=== PATIENT | female | born 1940 | race Caucasian/White ===

== ENCOUNTER 2019-03-04 14:22 | Emergency (ER) | payer MEDICARE, SELFPAY ==
[2019-03-04 14:22] VITALS: BP 145/63; PULSE 116; RESP 24; TEMP 36.7; O2SAT 98
[2019-03-04 14:23] VITALS: BP 145/63; PULSE 116; RESP 24; TEMP 36.7; O2SAT 98; BMI 19.2
--- NOTE | 2019-03-04 14:36 | RAD_ITS ---
STUDY: X-RAY CHEST REASON FOR EXAM: Female, 78 years old. Cough x 1 wk TECHNIQUE: PA and lateral views of the chest. COMPARISON: None. FINDINGS: Hyperinflation. Decreased bronchovascular markings bilaterally suggestive of emphysematous changes. There is no demonstrated pleural abnormality. Normal size heart. Calcified bilateral hilar lymph nodes. Normal visualized pulmonary arteries. Normal visualized aortic arch and descending thoracic aorta. There is demineralization of the osseous structures. Normal visualized ribs, clavicles, and shoulders. There is no demonstrated abnormality of the visualized soft tissue structures of the upper abdomen. RAD/Chest PA and Lateral IMPRESSION: Hyperinflation. Findings suggestive of emphysematous changes. Electronically Signed: Donnie Santos, at 15:18 EST , Service support ,
[2019-03-04 14:55] VITALS: BP 145/63; PULSE 116; RESP 24; TEMP 36.7; O2SAT 98
--- NOTE | 2019-03-04 15:29 | ED.VISSUMM ---
- ER Visit Summary Date of Service: 03/04/19 Chief Complaint: Cough History of Present Illness: The patient is a 78 F who presents with a cough. Is been ongoing for a week. She has associated sinus congestion with this. Her cough is productive of a yellow sputum at times as well. She denies fevers. She took nothing for this at home. She does have a history of COPD but wears no home oxygen takes no medications for this at home. She does not have an inhaler at home. Her boyfriend was diagnosed with bronchitis last week. She smokes about a pack of cigarettes a day. Physical Examination: Vital signs reviewed. HEENT exam unremarkable. Heart is regular rate and rhythm without murmurs. Lungs are clear to auscultation. Abdomen is soft and nontender. Extremities reveal no edema. Skin exam normal. Neurologic exam normal. Test Results: Chest x-ray shows emphysematous changes but there are no infiltrates Emergency Department Course and Treatment: Patient appears to have a bronchitis. She is not hypoxic. I will treat her with steroids and albuterol at home. She will use [id number] medications as well. She will follow-up with her PCP. Treatment Plan: [] Disposition: Discharge Impression: Acute bronchitis. This note was generated with [employer] dictation software. It may contain incorrect words, spelling, and punctuation that were not noted in review of the chart prior to signing ED Disposition - Plan for ED Patient: Disposition: Home or Assisted Living Instructions: BRONCHITIS, No Antibiotic (Adult) Prescriptions: predniSONE tablet 60 mg PO DAILY #15 tab Prescription Printed Albuterol Inhaler [Ventolin Hfa] 1 - 2 puff INHALATION Q4H PRN PRN #1 inhaler PRN Reason: Wheezing Prescription Printed Referrals: Sloane Mitchell [Primary Care Provider] -
[2019-03-04 15:54] VITALS: BP 145/63; PULSE 116; RESP 24; TEMP 36.7; O2SAT 98
== END 2019-03-04 15:55 | disposition home or self-care (01) ==
PROVIDERS: Emergency Provider Emergency Medicine; PCP Internal Medicine Cardiovascular Disease; Referring Provider Internal Medicine Cardiovascular Disease
DX: J44.0 Chronic obstructive pulmonary disease with (acute) lower respiratory infection (principal); J20.9 Acute bronchitis, unspecified; F17.210 Nicotine dependence, cigarettes, uncomplicated
CPT/HCPCS: 71046; 99282